=== PATIENT | male | born 1955 | race Two or more races ===

== ENCOUNTER 2022-08-19 23:35 | Emergency (ER) | payer OTHER ==
[~2022-08-19] VITALS: Ht 185.4 cm; Wt 90.7 kg
[2022-08-20] MEDS ORDERED: IBUPROFEN 800 MG TAB PO ONE (00:45)
[2022-08-20 02:17] VITALS: BP 136/80
== END 2022-08-20 02:23 | disposition home or self-care (01) ==
LOC: EEVIPCON 23:48 → ER 23:48
DX: S52.611A Displaced fracture of right ulna styloid process, initial encounter for closed fracture (principal); I10 Essential (primary) hypertension; I25.2 Old myocardial infarction; Z86.73 Personal history of transient ischemic attack (TIA), and cerebral infarction without residual deficits; X58.XXXA Exposure to other specified factors, initial encounter; Y93.89 Activity, other specified; Y92.89 Other specified places as the place of occurrence of the external cause; Y99.8 Other external cause status
CPT/HCPCS: 73100; 73130